=== PATIENT | male | born 1945 | race Caucasian/White ===

== ENCOUNTER 2020-08-02 11:11 | Day surgery (SDC) | payer OTHER, SELFPAY ==
--- NOTE | 2020-07-30 11:52 | NUR.NOTE ---
07/30/20 Patient very short on phone when getting pre op instructions and time of arrival. Patient reported he can't keep track of his medications. Med Rec done from PCP H&P. Patient educated that the day of surgery the RN will be asking him about his medications and the last time they were taken. Asked patient to provide a list or bring in medications for RN to go over.Nursing Note:
[2020-08-02 11:36] VITALS: BP 119/69; PULSE 51; RESP 18; TEMP 36.2; O2SAT 98
[2020-08-02] MEDS: Tropicam./Phenyleph. (1/2.5%) 5 ML BTL OD ×3 (11:53→12:04)
[2020-08-02] MEDS: Tetracaine 0.5% 4 ML BTL OD (12:14)
[2020-08-02] MEDS: Lidocaine 2% Jelly 6 ML SYR (12:14)
[2020-08-02] MEDS: Povidone-Iodine Ophth 30 ML BTL (12:15)
[2020-08-02] MEDS: Duovisc Viscoelastic System EACH 1 EACH (12:23)
[2020-08-02] MEDS: Balanced Salt Soln.-PLUS 500 ML BAG (12:23)
[2020-08-02] MEDS: Lidocaine 1% Pres-Free 5 ML VIAL (12:23)
--- NOTE | 2020-08-02 13:00 | W.PM.DSUDISC ---
Discharge Plan Disposition Patient Disposition: HOME Condition: Good Discharge Details Reason For Visit: CATARACT Attending Provider: Bacilio Walker Primary Care Provider: Noel Portillo [place] Meds and New Rx's Prescriptions: No Action metformin 500 mg Tablet 500 mg PO DAILY RF: 0 carvedilol 12.5 mg Tablet 25 mg PO BID RF: 0 chlorthalidone 25 mg Tablet 25 mg PO DAILY RF: 0 meclizine 25 mg Tablet 25 mg PO DAILY PRNRF: 0 montelukast 10 mg Tablet 10 mg PO DAILY RF: 0 allopurinol 300 mg Tablet 600 mg PO DAILY RF: 0 pravastatin 20 mg Tablet 20 mg PO DAILY RF: 0 losartan 100 mg Tablet 100 mg PO DAILY RF: 0 multivitamin Capsule 1 cap PO DAILY RF: 0 acetaminophen [Tylenol Extra Strength] 500 mg Capsule 1,000 mg PO Q6H PRNRF: 0 sildenafil (pulm.hypertension) 20 mg Tablet 20 mg PO DAILY PRNRF: 0 apixaban 5 mg Tablet 5 mg PO BID RF: 0 Discharge Instructions Stand Alone Forms: Post-op Topical Cataract, Diana Garcias (DSU) Discharge Orders Discharge Orders: Discharge Order (Routine); Ordered 08/02/20 Ordered By: Bacilio Walker DS: Diagnosis Discharge Diagnosis (1) Nuclear sclerotic cataract of right eye: Status: Resolved (2) Cortical cataract of right eye: Status: Resolved
--- NOTE | 2020-08-02 13:01 | W.PM.OP ---
Date of service: 08/02/20 Time of Service: 13:01 Operative Note Operative Note DATE OF PROCEDURE: 08/02/20 PRE-OP DIAGNOSIS: Nuclear/cortical cataract, right eye POST-OP DIAGNOSIS: same PROCEDURE: Cataract extraction using phacoemulsification with intraocular lens implant, right eye SURGEON: Bacilio Walker ANESTHESIA TYPE: Local By Surgeon and MAC Refer to Anesthesia Record ESTIMATED BLOOD LOSS: 0 PATHOLOGY: none sent COMPLICATIONS: None Patient was transported to: same day Patient's condition: stable Implants: Artur and Artur Vision / [employer] Tecnis ZCB00 intraocular lens Indications: Progressive decreased vision due to cataract, right eye Procedure Description: CATARACT SURGERY OPERATIVE REPORT PREOPERATIVE DIAGNOSIS: Nuclear/cortical cataract, right eye POSTOPERATIVE DIAGNOSIS: Same OPERATION: Cataract extraction using phacoemulsification with posterior chamber intraocular lens implant, right eye. IOL: IOL Manager [place]/Model: [employer] Vision / SHARA Tecnis ZCB00 IOL Power: + 21.0 diopters IOL Serial Number: [id number] Optic Diameter: 6.0mm Haptic/Overall Diameter: 13.0mm PHACO INFO: Luis Antonio [employer] Vision System with OZil and Active Fluidics Cumulative Dispersed Energy (CDE): 8.25 seconds SURGEON: Bacilio Walker MD, NIDHI ANESTHESIA: Monitored Anesthesia Care (MAC), with local sub-tenon's anesthetic infiltration COMPLICATIONS: None SPECIMENS: None INDICATIONS FOR PROCEDURE: The patient is a 74-year-old gentleman with history of diminished visual acuity in his right eye secondary to the development of nuclear and cortical cataract. The option of cataract surgery was offered to the patient and he felt he was symptomatic enough that he wished to proceed. PROCEDURE: The correct surgical eye was identified and marked as the right eye and the pupil was dilated in the preoperative area using mydriatics and cycloplegics. The dilated pupil size was 8.0 mm. Oral sedation was administered in the form of an Imprimis MKO Melt (midazolam 3mg/ketamine 25mg/ondansetron 2mg). The patient was brought to the operating room where cardiopulmonary monitoring was instituted and surgical time-out was performed, confirming the correct operative eye and IOL power. Topical anesthesia was administered and ophthalmic povidone-iodine 5% was instilled into the conjunctival fornices. Lidocaine gel was applied to the cornea and the jody-ocular area was prepped with Betadine 10% solution and draped in the usual sterile fashion for intraocular surgery, including an aperture drape. A Tegaderm transparent film dressing was cut in half and used to cover the lashes and lid margins. Care was taken to sequester the lashes and lid margins under the Tegaderm dressing. A lid speculum was placed between the lids of the operative eye and the Nori-Dalton operating microscope was maneuvered into position. Davion scissors were then used to make a conjunctival buttonhole approximately 6mm posterior to the limbus in the inferonasal quadrant. Blunt dissection was carried out to expose bare sclera, and a blunt-tipped sub-tenon?s anesthesia cannula was introduced and passed posteriorly along the globe where non-preserved plain lidocaine was injected into posterior sub-Tenon?s space. A sideport knife was used to make a paracentesis port inferiortemporally. Intraocular phenylephrine/lidocaine was injected into the anterior chamber. The anterior chamber was then filled with viscoelastic. A 2.4mm keratome knife was used to create a half-thickness groove at the limbus and then to construct a three-plane near-clear corneal tunnel extending 2.0mm into clear cornea in the superiortemporal position. . A flap was raised on the anterior capsule and capsulorhexis forceps were used to complete a continuous curvilinear capsulorhexis of 5.5 mm. Balanced salt solution was then used to perform cortical cleaving hydrodissection and nuclear hydrodelineation until the lens could be freely rotated within the capsular bag. The lens nucleus was then disassembled and removed within the capsular bag and iris plane using phacoemulsification. Residual cortical material was removed using the I/A handpiece. The posterior capsule was carefully polished to remove as much residual lens epithelial cells as safely possible. The capsular bag was then inflated and the anterior chamber deepened with viscoelastic. The lens implant described above was inserted into the capsular bag using the SHARA [place] Injector. A Kuglen hook was used to dial the IOL into position. Residual viscoelastic was then removed first from posterior to the IOL, then from the anterior chamber using the I/A handpiece. The lens implant was noted to center nicely within the capsular bag. The incisions were stromally hydrated, and the anterior chamber was reformed using BSS. Then 0.5cc of moxifloxacin 1.0mg/ml were injected into the capsular bag and anterior chamber. The incisions were checked with a Weck spear and found to be secure. Several drops of ophthalmic povidone-iodine 5% were then applied to the eye followed by two drops of Imprimis combination prednisolone/moxifloxacin/nepafenac solution. The drapes were removed and a clear plastic protective eye shield was placed over the eye. The patient was then returned to Same Day Surgery in stable condition.
[2020-08-02 13:07] VITALS: BP 119/69; PULSE 51; RESP 18; TEMP 36.2; O2SAT 98
== END 2020-08-02 13:19 | disposition home or self-care (01) ==
PROVIDERS: PCP Family Medicine; Visit Provider Ophthalmology
PROC: (CPT 66984; principal; 2020-08-02 14:30)
DX: H25.11 Age-related nuclear cataract, right eye (principal); H25.011 Cortical age-related cataract, right eye; I10 Essential (primary) hypertension
CPT/HCPCS: 66984; V2632

== ENCOUNTER 2020-08-16 09:37 | Day surgery (SDC) | payer OTHER, SELFPAY ==
[2020-08-16 10:03] VITALS: BP 138/68; PULSE 49; RESP 16; TEMP 36.4; O2SAT 97
[2020-08-16] MEDS: Balanced Salt Soln.-PLUS 500 ML BAG (11:20)
[2020-08-16] MEDS: Tetracaine 0.5% 4 ML BTL OS (11:21)
[2020-08-16] MEDS: Lidocaine 1% Pres-Free 5 ML VIAL (11:21)
[2020-08-16] MEDS: Lidocaine 2% Jelly 6 ML SYR (11:22)
[2020-08-16] MEDS: Duovisc Viscoelastic System EACH 1 EACH (11:22)
[2020-08-16] MEDS: Povidone-Iodine Ophth 30 ML BTL (11:22)
--- NOTE | 2020-08-16 11:52 | W.PM.DSUDISC ---
Discharge Plan Disposition Patient Disposition: HOME Condition: Good Discharge Details Attending Provider: Bacilio Walker Primary Care Provider: Noel Portillo [place] Meds and New Rx's Prescriptions: No Action metformin 500 mg Tablet 500 mg PO DAILY RF: 0 carvedilol 12.5 mg Tablet 25 mg PO BID RF: 0 chlorthalidone 25 mg Tablet 25 mg PO DAILY RF: 0 meclizine 25 mg Tablet 25 mg PO DAILY PRNRF: 0 montelukast 10 mg Tablet 10 mg PO DAILY RF: 0 allopurinol 300 mg Tablet 600 mg PO DAILY RF: 0 pravastatin 20 mg Tablet 20 mg PO DAILY RF: 0 losartan 100 mg Tablet 100 mg PO DAILY RF: 0 multivitamin Capsule 1 cap PO DAILY RF: 0 acetaminophen [Tylenol Extra Strength] 500 mg Capsule 1,000 mg PO Q6H PRNRF: 0 sildenafil (pulm.hypertension) 20 mg Tablet 20 mg PO DAILY PRNRF: 0 apixaban 5 mg Tablet 5 mg PO BID RF: 0 Discharge Instructions Stand Alone Forms: Post-op Topical Cataract, Diana Garcias (DSU) Discharge Orders Discharge Orders: Discharge Order (Routine); Ordered 08/16/20 Ordered By: Bacilio Walker DS: Diagnosis Discharge Diagnosis (1) Nuclear sclerotic cataract of left eye: Status: Resolved (2) Cortical cataract of left eye: Status: Resolved
--- NOTE | 2020-08-16 11:53 | ROE_ITS ---
Date of service: 08/16/20 Time of Service: 11:53 Operative Note Operative Note DATE OF PROCEDURE: 08/16/20 PRE-OP DIAGNOSIS: Nuclear/cortical cataract, right eye POST-OP DIAGNOSIS: same PROCEDURE: Cataract extraction using phacoemulsification with intraocular lens implant, left eye SURGEON: Bacilio Walker ANESTHESIA TYPE: Local By Surgeon and MAC Refer to Anesthesia Record PATHOLOGY: none sent COMPLICATIONS: None Patient was transported to: same day Patient's condition: stable Implants: Artur and Artur Vision / [employer] Tecnis ZCB00 Indications: Progressive decreased vision due to cataract, left eye Procedure Description: CATARACT SURGERY OPERATIVE REPORT PREOPERATIVE DIAGNOSIS: Nuclear/cortical cataract, right eye POSTOPERATIVE DIAGNOSIS: Same OPERATION: Cataract extraction using phacoemulsification with posterior chamber intraocular lens implant, left eye. IOL: IOL Lockstitch Sleeve Setter/Model: J&J Vision / SHARA Tecnis ZCB00 IOL Power: + 21.5 diopters IOL Serial Number: [id number] Optic Diameter: 6.0mm Haptic/Overall Diameter: 13.0mm PHACO INFO: Luis [facility]urion Vision System with OZil and Active Fluidics Cumulative Dispersed Energy (CDE): 4.30 seconds SURGEON: Bacilio Walker MD, NIDHI ANESTHESIA: Monitored Anesthesia Care (MAC), with local sub-tenon's anesthetic infiltration COMPLICATIONS: None SPECIMENS: None INDICATIONS FOR PROCEDURE: Patient is a 74-year-old gentleman with history of diminished visual acuity in both eyes secondary to the development of bilateral nuclear and cortical cataract. He has already undergone cataract surgery in the right eye and is doing well postoperatively. He now presents for cataract surgery in the left eye. PROCEDURE: The correct surgical eye was identified and marked as the left eye and the pupil was dilated in the preoperative area using mydriatics and cycloplegics. The dilated pupil size was 8.0 mm. Oral sedation was administered in the form of an Imprimis MKO Melt (midazolam 3mg/ketamine 25mg/ondansetron 2mg). The patient was brought to the operating room where cardiopulmonary monitoring was instituted and surgical time-out was performed, confirming the correct operative eye and IOL power. Topical anesthesia was administered and ophthalmic povidone-iodine 5% was instilled into the conjunctival fornices. Lidocaine gel was applied to the cornea and the jody-ocular area was prepped with Betadine 10% solution and dr aped in the usual sterile fashion for intraocular surgery, including an aperture drape. A Tegaderm transparent film dressing was cut in half and used to cover the lashes and lid margins. Care was taken to sequester the lashes and lid margins under the Tegaderm dressing. A lid speculum was placed between the lids of the operative eye and the Nori-Dalton operating microscope was maneuvered into position. Davion scissors were then used to make a conjunctival buttonhole approximately 6mm posterior to the limbus in the inferonasal quadrant. Blunt dissection was carried out to expose bare sclera, and a blunt-tipped sub-tenon?s anesthesia cannula was introduced and passed posteriorly along the globe where non- preserved plain lidocaine was injected into posterior sub-Tenon?s space. A sideport knife was used to make a paracentesis port superior/superiortemporally. Intraocular phenylephrine/lidocaine was injected into the anterior chamber. The anterior chamber was then filled with viscoelastic. A 2.4mm keratome knife was used to create a half-thickness groove at the limbus and then to construct a three-plane near-clear corneal tunnel extending 2.0mm into clear cornea in the temporal position. . A flap was raised on the anterior capsule and capsulorhexis forceps were used to complete a continuous curvilinear capsulorhexis of 6.0 mm. Balanced salt solution was then used to perform cortical cleaving hydrodissection and nuclear hydrodelineation until the lens could be freely rotated within the capsular bag. The lens nucleus was then disassembled and removed within the capsular bag and iris plane using phacoemulsification. Residual cortical material was removed using the 45-degree angled silicone I/A tip with 0.3mm port. The posterior capsule was carefully polished to remove as much residual lens epithelial cells as safely possible. The capsular bag was then inflated and the anterior chamber deepened with viscoelastic. The lens implant described above was inserted into the capsular bag using the SHARA [place] Injector. A Kuglen hook was used to dial the IOL into position. Residual viscoelastic was then removed first from posterior to the IOL, then from the anterior chamber using the I/A handpiece. The lens implant was noted to center nicely within the capsular bag. The incisions were stromally hydrated, and the anterior chamber was reformed using BSS. Then 0.5cc of moxifloxacin 1.0mg/ml were injected into the capsular bag and anterior chamber. The incisions were checked with a Weck spear and found to be secure. Several drops of ophthalmic povidone-iodine 5% were then applied to the eye followed by two drops of Imprimis combination prednisolone/moxifloxacin/nepafenac solution. The drapes were removed and a clear plastic protective eye shield was placed over the eye. The patient was then returned to Same Day Surgery in stable condition.
[2020-08-16 12:10] VITALS: BP 135/71; PULSE 51; RESP 18; TEMP 36.5; O2SAT 98
== END 2020-08-16 12:15 | disposition home or self-care (01) ==
PROVIDERS: PCP Family Medicine; Visit Provider Ophthalmology
PROC: (CPT 66984; principal; 2020-08-16 12:30)
DX: H25.12 Age-related nuclear cataract, left eye (principal); H25.012 Cortical age-related cataract, left eye; Z98.41 Cataract extraction status, right eye; Z96.1 Presence of intraocular lens
CPT/HCPCS: 66984; V2632